=== PATIENT | male | born 2000 | race Caucasian/White ===

== ENCOUNTER 2022-02-01 17:41 | Emergency (ER) | payer OTHER ==
[2022-02-01] MEDS ORDERED: IBUPROFEN 800 MG TABLET PO STA (17:46)
--- NOTE | 2022-02-01 17:55 | ED Physician Documentation ---
PD HPI MAJOR TRAUMA - Stated complaint Stated Complaint: LOW BACK PX - Chief complaint Chief Complaint: Trauma Ch/Bk - History obtained from History obtained from: Patient, EMS - Additional information Additional information: Otherwise healthy young man was squatting with 265 pounds and felt a pop in his back and is brought in by ambulance. He denies weakness, numbness, tingling, saddle anesthesia. Declines pain medication on initial evaluation. Of note he is in full spinal precautions on initial evaluation and has no neck injury or neck pain and he is Nexus negative and the cervical collar was removed during initial evaluation. He was able to roll himself up off of the backboard without pain. Review of Systems Constitutional: denies: Fever, Chills Cardiac: reports: Reviewed and negative Respiratory: reports: Reviewed and negative GI: reports: Reviewed and negative : reports: Reviewed and negative PD PAST MEDICAL HISTORY - Present Medications Home Medications: Ambulatory Orders Medication Instructions Recorded Confirmed Cyclobenzaprine [Flexeril] 10 mg PO TID PRN #10 tablet 02/01/22 Ibuprofen [Motrin] 800 mg PO Q8H PRN #14 tablet 02/01/22 - Allergies Allergies/Adverse Reactions: Allergies Allergy/AdvReac Type Severity Reaction Status Date / Time No Known Drug Allergies Allergy Verified 02/01/22 17:51 PD ED PE NORMAL - Vitals Vital signs reviewed: Yes - General General: Alert and oriented X 3, Other (He appears comfortable and moves around without evidence of significant pain.) - Neck Neck: Supple, no meningeal sign, No bony TTP, C-Spine cleared by NEXUS criteria - Back Back: No CVA TTP, Other (Mild tenderness around L3) - Extremities Extremities: Other (The patient has equal and normal Achilles and patellar reflexes bilaterally. Normal sensation in all areas of the legs. Patient denies saddle anesthesia. Normal strength in flexion-extension at the ankles, knees, and flexion of the hips.) - Neuro Neuro: Alert and oriented X 3, Normal speech Results - Vitals Vitals: Vital Signs - 24 hr 02/01/22 02/01/22 17:48 19:59 Temperature 36.7 C Heart Rate 108 H 88 Respiratory 14 12 Rate Blood Pressure 133/89 H 127/84 H O2 Saturation 98 100 Oxygen O2 Source Room air - Rads (name of study) LS XR Radiology: EMP read contemporaneously (NAD) PD MEDICAL DECISION MAKING - ED course ED course: 22-year-old gentleman with back pain starting while lifting weights this evening. Initially did not want anything strong for pain took some ibuprofen but after x-rays done which were normal, he had significant spasms when trying to sit up and this was remedicated and then he was doing well. Departure - Departure Disposition: 01 Home, Self Care Clinical Impression: Lumbago Condition: Good Record reviewed to determine appropriate education?: Yes Instructions: ED Low Back Pain Injury, Flexeril Prescriptions: Cyclobenzaprine [Flexeril] 10 mg PO TID PRN #10 tablet PRN Reason: Spasms Ibuprofen [Motrin] 800 mg PO Q8H PRN #14 tablet PRN Reason: PAIN &/OR FEVER Comments: X-rays of your lumbar spine were negative. Take it easy with gentle stretching and not too much activity for the next few days. Return for new or worsening symptoms. Do not drink or drive while taking prescription muscle relaxer. Forms: Activity restrictions Discharge Date/Time: 02/01/22 19:59
--- NOTE | 2022-02-01 18:48 | XRAY Report ---
PROCEDURE: Lumbar Spine 2 View INDICATIONS: back injury TECHNIQUE: 2 views of the lumbar spine were acquired. COMPARISON: None. FINDINGS: Bones: 5 [id number] vertebrae are present. There is normal bony alignment. No vertebral body compression fractures. No suspicious bony lesions. Soft tissues: Overlying bowel gas pattern is normal. No suspicious soft tissue calcifications. IMPRESSION: No acute osseous abnormalities. If clinical symptoms persist, a repeat examination or ad vanced imaging such as CT or MRI is suggested. Reviewed by: Isha Valenzuela MD on 02/01/2022 6:47 PM PDT Approved by: Isha Valenzuela MD on 02/01/2022 6:47 PM PDT Station ID: [id number]
[2022-02-01] MEDS ORDERED: LORazepam 2 MG/ML VIAL IM STA (19:01)
[2022-02-01] MEDS ORDERED: HYDROmorphone 1 MG/ML CARPUJECT IM STA (19:01)
[2022-02-01] MEDS ORDERED: CYCLOBENZAPRINE 10 MG Prepack 2 PO PRN (19:33)
[2022-02-01 20:00] VITALS: BP 127/84
== END 2022-02-01 19:59 | disposition home or self-care (01) ==
LOC: ED 17:41
DX: S39.92XA Unspecified injury of lower back, initial encounter (principal); X50.0XXA Overexertion from strenuous movement or load, initial encounter
CPT/HCPCS: 72100; 96372; 99282; 99283; A9270; J1170; J2060

== ENCOUNTER 2022-08-03 13:02 | Outpatient (CLI) | payer OTHER ==
--- NOTE | 2022-08-03 13:43 | SLEEP CARE CONSULTATION ---
Information from patient questionnaire entered by Franky Pink. I have reviewed and concur with the information entered by Franky Pink. This document represents the service I personally performed and the decisions made by me, Harmony Morfin ARNP. History of Present Illness Service Date and Time: 08/03/2022 1302 Reason for Visit: New patient Chief Complaint: reports: Snoring, Excessive daytime sleepiness, Fatigue, Frequent awakenings at night Date of Onset: 7YRS Usual bedtime: 1030PM Time it takes to fall asleep: 5-10MIN Snores at night: Yes Observed to quit breathing while asleep: No Number of times waking at night: 5 Reasons for waking at night: reports: Bathroom (sometimes), Other (UNKNOWN). denies: Choking, Snoring, Gasping for air Toss, Turn, or Twitch while sleeping: Yes Recalls having dreams: Yes (has vivid dreams) Usually gets out of bed at: 630AM Feels refreshed in the morning: No Morning headache: Yes (3-4 times a week; 30MIN AFTER WAKING) Sleepy or fatigued during the day: Yes Ever fallen asleep while driving: No Takes day naps: Yes (daily) Dreams during day naps: Yes Prior sleep studies: No Additional HPI information: I had the pleasure of seeing ERIKA MERIDA today regarding the possibility of him having a sleep disorder. His current complaints are excessive daytime sleepiness, fatigue, frequent night awakenings and snoring. He states he has trouble staying asleep. He will wake up 3-7 times a night. He feels groggy throughout the day and has to take a nap at some point. He usually does get a nap daily for 15 mins to an hour, sometimes more. He states he does not usually feel rested in the morning or after his naps. - Parasomnia Symptoms Ever been unable to move upon waking from sleep: Yes (4 times a month) Walks in sleep: No Talks in sleep: Yes (sometimes) Ever acted out dreams in sleep: No Ever felt weak in the knees when startled or emotional: No Bothered by creepy, crawly, restless sensations in legs: No Problems with memory or concentration: Yes (more concentration but sometimes memory) Subjective Initial [place] Sleepiness Scale score: 14 (08/03/22) Past Medical History Past Medical History: reports: Other (appendectomy 2016) Social History The patient's occupation is a AM. Patient is Single and lives in . Have you smoked in the past 12 months: No Cigarettes per day (20/pack): 0 Years of smokin Quit date: 6 months ago Smoking Pack Years: 0 Alcohol use: Yes Alcohol amount and frequency: EVERY COUPLE WEEKS 5-8 DRINKS Caffeine use: No Family History Family history of sleep disordered breathing: Yes Family Hx Sleep Apnea: Father: Snoring Allergies and Home Medications Known drug allergies: No Drug allergies reviewed: Yes Home medication list reviewed: Yes (no daily medications) Allergy and home medication list: Allergies No Known Drug Allergies Allergy (Verified 08/03/22 11:58) Review of Systems Weight gain over past 5 years: 20 - just muscle weight Cardiovascular: reports: high blood pressure ( did for 1 year but not treated) Gastrointestinal: denies: heartburn Neurological: denies: headaches Psychiatric: reports: anxiety. denies: Attention Deficit Hyperactivity Ear/Nose/Throat: reports: wisdom teeth removed. denies: tonsillectomy Endocrine: denies: thyroid disease Musculoskeletal: reports: back pain Immunologic: reports: sneezing Physical Exam Vital signs obtained and entered by: FRANKY Santiago MA Blood Pressure: 126/62 (LEFT ARM) Cuff size: regular (LEFT ARM) Heart Rate: 74 O2 Saturation: 97 Height: 6 ft Weight: 182 lb Body Mass Index: 24.7 BMI Classification: Normal Neck circumference: 15.5 Mouth and throat: narrow oropharynx Soft palate: long Hard palate: normal Uvula: long Uvula visualization: 25% Mallampati Class III Tongue: enlarged in size with teeth cox on lateral edges Tonsils: 1+ Neck: normal w/o lymphadenopathy or thyromegaly Heart: regular rate and rhythm Lungs: clear bilaterally Impression and Plan 1. Suspected Obstructive Sleep Apnea-Hypopnea Syndrome, as suggested by a history of loud and irregular snoring, morning headache, frequent awakening during the night, unrefreshed sleep, cognitive impairment, and excessive daytime sleepiness. Narrow oropharynx and obesity are common predisposing factors for obstructive sleep apnea-hypopnea syndrome. I recommend proceeding to polysomnography to confirm the diagnosis and to assess severity. If the patient has significant sleep disordered breathing, a manual CPAP titration study will also be performed to find the optimal treatment pressure. I informed the patient of what the sleep studies involve and after some discussion, obtained agreement to proceed. The pathophysiology of obstructive sleep apnea-hypopnea syndrome was discussed with the patient and health risks of cardiovascular and cerebrovascular disease if not treated. Risks of drowsy driving discussed in detail and patient advised to avoid long distance driving and to pullman clerk at the first sign of drowsiness. Patient agreed to plan. * Schedule polysomnography * Avoid long distance driving or driving when feeling sleepy. * Avoid alcohol, sedative and muscle relaxant around bedtime. * Review instructions provided by trained office staff on how to prepare for the sleep study. * Return for follow-up after sleep study completed. Visit Type: In Office Time Spent with Patient (minutes): 25 Provider Statement: I spent 100% of the Face to Face Visit with the patient with greater than 50% spent counseling the patient and coordination of care.
[2022-08-03 13:44] VITALS: BP 126/62
== END 2022-08-03 13:03 | disposition home or self-care (01) ==
LOC: SC 13:02
PROVIDERS: ATTEND Nurse Practitioner Family
DX: R06.83 Snoring (principal); R51.9 Headache, unspecified; G47.8 Other sleep disorders; R41.89 Other symptoms and signs involving cognitive functions and awareness; G47.10 Hypersomnia, unspecified
CPT/HCPCS: 99202; 99212

== ENCOUNTER 2022-09-21 08:44 | Outpatient (CLI) | payer OTHER | END 2022-09-21 08:45 | disposition home or self-care (01) | LOC: SC 08:44 | PROVIDERS: ATTEND Nurse Practitioner Family | DX: R06.83 Snoring (principal); G47.8 Other sleep disorders; R51.9 Headache, unspecified; G47.10 Hypersomnia, unspecified | CPT/HCPCS: 95806 ==

== ENCOUNTER 2022-11-06 15:50 | Outpatient (CLI) | payer OTHER ==
--- NOTE | 2022-11-06 16:10 | SLEEP CARE CONSULTATION ---
Information from patient questionnaire entered by Anay Pink. I have reviewed and concur with the information entered by Anay Pink. This document represents the service I personally performed and the decisions made by , Harmony Morfin ARNP. History of Present Illness Service Date and Time: 11/06/2022 1550 Initial [place] Sleepiness Scale score: 14 (08/03/22) Current [place] Sleepiness Scale score: 17 Additional HPI information: ERIKA MERIDA returns for follow up and results of the recently performed home sleep study. The patient was informed of the following findings: No significant sleep disordered breathing with an average AHI of 1.3 and shara oxygen saturation of 92%. I explained the pathophysiology behind obstructive sleep apnea. Patient does not have sleep apnea and was advised how weight gain could increase the risk of developing sleep apnea in the future. Sleep Study - Results Type of Sleep Study: Polysomnography (COMPLETED 09/21/22) Prior sleep studies: No Polysomnography/Home Sleep Study results: Physician Impression: The quality of the study is good. The length of the study is adequate (> 240 minutes). Please also see the tabulated and graphic data. 1. No significant sleep disordered breathing, with an AHI of 1.3/hr and shara SaO2 of 92%. During the study, the patient had 7 apneas (7 obstructive, 0 central, 0 mixed) and 3 hypopneas. The longest episode lasted 55.5 seconds. The pressure slept mostly supine (supine AHI was 1.3 and non-supine, 1.42). Allergies and Home Medications Known drug allergies: No Drug allergies reviewed: Yes Home medication list reviewed: Yes (no changes) Allergy and home medication list: Allergies No Known Drug Allergies Allergy (Verified 11/05/22 21:40) Review of Systems Review of systems same as previous: Yes (no changes) Physical Exam Vital signs obtained and entered by: Harmony Mena NP Blood Pressure: 124/68 Cuff size: wrist (left) Heart Rate: 67 O2 Saturation: 98 Height: 6 ft Weight: 179 lb Body Mass Index: 24.3 BMI Classification: Normal Impression and Plan 1. Suspected Obstructive Sleep Apnea-Hypopnea Syndrome, as suggested by a history of loud and irregular snoring, morning headache, frequent awakening during the night, unrefreshed sleep, cognitive impairment, and excessive daytime sleepiness. His HST was negative for sleep disordered breathing but his [place] is 17/24 and his symptoms are consistent with JORDEN. I recommend proceeding to polysomnography to confirm the diagnosis and to assess severity. I obtained agreement to proceed. The pathophysiology of obstructive sleep apnea-hypopnea syndrome was discussed with the patient and health risks of cardiovascular and cerebrovascular disease if not treated. Risks of drowsy driving discussed in detail and patient advised to avoid long distance driving and to dry chain puller at the first sign of drowsiness. Patient agreed to plan. * Schedule polysomnography +- manual CPAP titration study and return in 1-2 weeks after the study to discuss result and initiate therapy. * Avoid long distance driving or driving when feeling sleepy. * Avoid alcohol, sedative and muscle relaxant around bedtime. * Attempt to lose weight. * Review instructions provided by trained office staff on how to prepare for the sleep study. * Return for follow-up after sleep study completed. Visit Type: In Office Time Spent with Patient (minutes): 20 Provider Statement: I spent 100% of the Face to Face Visit with the patient with greater than 50% spent counseling the patient and coordination of care.
[2022-11-06 16:13] VITALS: BP 124/68
== END 2022-11-06 15:51 | disposition home or self-care (01) ==
LOC: SC 15:50
PROVIDERS: ATTEND Nurse Practitioner Family
DX: R06.83 Snoring (principal); R51.9 Headache, unspecified; G47.10 Hypersomnia, unspecified
CPT/HCPCS: 99212; 99213